=== PATIENT | female | born 1990 | race African-American/Black ===

== ENCOUNTER 2016-03-12 11:40 | Emergency (ER) | payer MEDICAID ==
[~2016-03-12] VITALS: Ht 149.9 cm; Wt 75.0 kg
[~2016-03-12 11:40] MED LIST: PARAIUD
[2016-03-12 11:42] VITALS: BP 127/79; PULSE 100; RESP 16; TEMP 97.9; O2SAT 98
[2016-03-12] MEDS ORDERED: CLIN1CAP6 PO (12:21)
--- NOTE | 2016-03-12 12:22 | PD ---
HPI Chief Complaint: Abnormal Results Time Seen by Provider: 12:06 Travel History International Travel<30 days: No Contact w/Intl Traveler<30days: No Traveled to known affect area: No History of Present Illness HPI 25-year-old female came to the emergency room with history of discharge from her right nipple with pain. Patient has a 3-month-old baby and she is breast- feeding. Since yesterday she noticed her right nipple being tender and when she expressed she noticed some purulent discharge coming from the side of her nipple where she had nipple piercing done many years ago. As per her the discharge smells foul. Today her left apple seems to be hurting as well. No history of fever or chills. Vital signs otherwise stable. PFSH Past Medical History Narrative Medical List of her past medical history as reviewed from the nursing note. Medical History: Denies Significant Hx Diminished Hearing: No Tetanus Vaccination: < 5 Years Influenza Vaccination: Yes ?: Not LMP: 02/16/16 : 2 Para: 2 Miscarriage: 0 : 0 Past Surgical History Surgical History: No Previous Surgery Social History Alcohol Use: No Tobacco Use: No Substance Use: No Allergies-Medications (Allergen,Severity, Reaction): Coded Allergies: No Known Allergies (Unverified , 03/12/16) Comments No known drug allergies. Reported Meds & Prescriptions Reported Meds & Active Scripts Active Clindamycin (Clindamycin HCl) 300 Mg Cap 300 Mg PO Q6H 10 Days Narrative Medication List of her home medications reviewed from the nursing note. Review of Systems Except as stated in HPI: all other systems reviewed are Neg Physical Exam Narrative GENERAL: Awake, alert, no obvious distress SKIN: Warm and dry. Right breast nipple area upon expressing has milk coming out from the nipple. However there were 2 tiny drops of pus from 4:00 AM and 11 o'clock position at the base of the nipple. It was somewhat tender to touch. No erythema or lumps felt. HEAD: Atraumatic. Normocephalic. EYES: Pupils equal and round. No scleral icterus. No injection or drainage. ENT: No nasal bleeding or discharge. Mucous membranes pink and moist. NECK: Trachea midline. No JVD. CARDIOVASCULAR: Regular rate and rhythm. No murmur appreciated. RESPIRATORY: No accessory muscle use. Clear to auscultation. Breath sounds equal bilaterally. GASTROINTESTINAL: Abdomen soft, non-tender, nondistended. Hepatic and splenic margins not palpable. MUSCULOSKELETAL: No obvious deformities. No clubbing. No cyanosis. No edema. NEUROLOGICAL: Awake and alert. No obvious cranial nerve deficits. Motor grossly within normal limits. Normal speech. PSYCHIATRIC: Appropriate mood and affect; insight and judgment normal. Data Data Last Documented VS Vital Signs Date Time Temp Pulse Resp B/P Pulse Ox O2 Delivery O2 Flow Rate FiO2 03/12/16 11:50 16 Room Air 03/12/16 11:42 97.9 100 127/79 98 Orders Wound Culture And Gram Stain (03/12/16 12:11) Clindamycin (Cleocin) (03/12/16 12:30) MDM Medical Decision Making Medical Screen Exam Complete: Yes Emergency Medical Condition: Yes Medical Record Reviewed: Yes Differential Diagnosis Mastitis Narrative Course 12:26 PM patient is given a dose of clindamycin and the culture of the pus was collected and sent. Patient will be discharged home on antibiotic prescription and instructions. Procedures EKG Prior to Arrival: No Diagnosis Primary Impression: Mastitis Referrals: Primary Care Physician 2 days Additional Instructions: Please return to the ER if the condition worsens or any other new concerns. Take the antibiotic prescription as per the direction. Apply warm moist heat to the area. This will allow the antibiotic to absorb water into the tissues due to increased circulation. Clindamycin is safe for breast-feeding. However till the time you have pain and there is pus coming out just pump the milk and dump it. Med/Other Pt SpecificInfo: Prescription(s) given Scripts Clindamycin 300 Mg [id number] Mg PO Q6H 10 Days Ref 0 Prov:Mark Strong MD 03/12/16 Disposition: 01 DISCHARGE HOME Condition: Stable Mark Strong MD Mar 12, 2016 12:22
[2016-03-12] MEDS ORDERED: CLINDAMYCIN 150 MG CAP PO ONE (12:30)
[2016-03-21] MEDS ORDERED: FLUC150T PO (16:23)
== END 2016-03-12 12:59 | disposition home or self-care (01) ==
LOC: NEPA 11:40
DX: N61.0 Mastitis without abscess (principal); N64.52 Nipple discharge; N64.4 Mastodynia
CPT/HCPCS: 86403; 87070; 99283

== ENCOUNTER 2016-04-20 21:10 | Emergency (ER) | payer MEDICAID ==
[~2016-04-20] VITALS: Ht 149.9 cm; Wt 78.0 kg
[~2016-04-20 21:10] MED LIST changes: +CLIN1CAP6 PO; +FLUC150T PO; -PARAIUD
[2016-04-20 21:23] VITALS: BP 119/73; PULSE 84; RESP 14; TEMP 98; O2SAT 99
[2016-04-20] MEDS ORDERED: SODIUM CHLOR 0.9% 1000 ML INJ 1,000 ML IV SCH (22:34)
[2016-04-20] MEDS ORDERED: ONDANSETRON HCL 4 MG/2 ML VIAL IVP ONE (22:45)
[2016-04-20] MEDS ORDERED: MORPHINE SULFATE 4 MG/ML INJ IV PUSH ONE (22:45)
[2016-04-20] MEDS ORDERED: SODIUM CHLORIDE 0.9% FLUSH 5 ML FLUSH IVF PRN (22:45)
[2016-04-20 23:17] LABS: BLOOD, URINE NEG (NEG); COMMENT (UR) CULT NOT INDICATED; CULTURE IF INDICATED CULT NOT INDICATED; GLUCOSE,URINE NEG (NEG); KETONE, URINE NEG (NEG); MUCUS URINE MANY /lpf (OCC); NITRITE,URINE NEG (NEG); PH, URINE 6.5 (5.0-8.5); SQUAMOUS EPITHELIAL CELL URINE 13 /hpf (0-5); URINE COLOR YELLOW (YELLW/STRAW)
[2016-04-20 23:18] VITALS: RESP 20
[2016-04-20 23:40] LABS: ALKALINE PHOSPHATASE 89 U/L (45-117); TOTAL BILIRUBIN ADULT 0.2 MG/DL (0.2-1.0)
--- NOTE | 2016-04-21 00:23 | PD ---
HPI Chief Complaint: Abdominal Pain Time Seen by Provider: 22:33 Travel History International Travel<30 days: No Contact w/Intl Traveler<30days: No Traveled to known affect area: No History of Present Illness HPI To 25-year-old woman who presents to the emergency department complaining of lower abdominal pain and back pain ongoing for the past day or so, getting steadily worse. No clear aggravating or alleviating factors. No urinary symptoms. No vaginal discharge or vaginal bleeding. Last initial period was August 17. She has delivered a baby about 4 months ago. She had a copper IUD placed in January. She otherwise has been feeling generally well and healthy. No history of any abdominal surgeries. History Past Medical History Medical History: Denies Significant Hx LMP: 03/19/16 : 2 Para: 2 Past Surgical History Surgical History: No Previous Surgery Social History Alcohol Use: No Tobacco Use: No Allergies-Medications (Allergen,Severity, Reaction): Coded Allergies: No Known Allergies (Unverified , 04/20/16) Reported Meds & Prescriptions Reported Meds & Active Scripts Active Macrobid (Nitrofurantoin Monoh/Nitrofur Macro) 100 Mg Cap 100 Mg PO BID Anaprox DS (Naproxen Sodium) 550 Mg Tab 550 Mg PO Q12HR PRN Lortab (Hydrocodone-Acetaminophen) 5-325 Mg Tab 1 Tab PO Q6H PRN Review of Systems Except as stated in HPI: all other systems reviewed are Neg Physical Exam Narrative GENERAL: Well-appearing 24 year-old woman, no acute distress. SKIN: Warm and dry. HEAD: Atraumatic. Normocephalic. NECK: Trachea midline. No JVD. CARDIOVASCULAR: Regular rate and rhythm. No murmur appreciated. RESPIRATORY: No accessory muscle use. Clear to auscultation. Breath sounds equal bilaterally. GASTROINTESTINAL: Abdomen is flat and soft. She has moderate tenderness in the lower abdomen with a lot of voluntary guarding. Skin the midline. There is not really right lower quadrant tenderness or guarding. PELVIC: Normal external female genitalia. Cervix points posteriorly was a little bit difficult to see however ParaGard strings were observed. No significant discharge. No cervical motion tenderness. No adnexal tenderness or masses. kier tender with guarding over the lower midline suprapubic abdomen. MUSCULOSKELETAL: No obvious deformities. No edema. NEUROLOGICAL: Awake and alert. No obvious cranial nerve deficits. Motor grossly within normal limits. Normal speech. Data Data Last Documented VS Orders Complete Blood Count With Diff (04/20/16 22:34) Comprehensive Metabolic Panel (04/20/16 22:34) Lipase (04/20/16 22:34) Urinalysis - C+S If Indicated (04/20/16 22:34) Iv Access Insert/Monitor (04/20/16 22:34) Ecg Monitoring (04/20/16 22:34) Oximetry (04/20/16 22:34) NPO (04/20/16 22:34) Morphine Inj (Morphine Inj) (04/20/16 22:45) Ondansetron Inj (Zofran Inj) (04/20/16 22:45) Sodium Chlor 0.9% 1000 Ml Inj (Ns 1000 M (04/20/16 22:34) Sodium Chloride 0.9% Flush (Ns Flush) (04/20/16 22:45) Ed Urine Pregnancytest Poc (04/20/16 22:34) Gc And Chlamydia Pcr (04/20/16 22:34) Wet Prep Profile (04/20/16 22:34) Ct Abd/Pel W Iv Contrast(Rout) (04/21/16 22:34) Iohexol 350 Inj (Omnipaque 350 Inj) (04/21/16 01:48) Ketorolac Inj (Toradol Inj) (04/21/16 02:45) Urine Culture (04/21/16 02:41) Labs MDM Medical Decision Making Medical Screen Exam Complete: Yes Emergency Medical Condition: Yes Differential Diagnosis Ruptured ovarian cyst, PID, , cystitis, appendicitis, other Narrative Course Medical decision making INITIAL: Is a well 25-year-old woman presents to the emergency department with lower abdominal pain that radiates through to her back. Etiology is unclear. She is a lot of voluntary guarding and some tenderness. She looks otherwise well. She is not really at risk for PID. Pelvic exam was unremarkable other than suprapubic tenderness. Some concern for appendicitis. No other clear etiology. We'll check labs, UA, CT, reassess. Scripts Nitrofurantoin Monohydrate Macrocrystals (Macrobid)100 Mg [id number] Mg PO BID #6 CAP Ref 0 Prov:Libby Vivas MD 04/21/16 Naproxen Sodium DS (Anaprox DS)550 Mg [id number] Mg PO Q12HR PRN (PAIN GREATER THAN 6) #12 TAB Ref 0 Prov:Libby Vivas MD 04/21/16 Hydrocodone-Acetaminophen (Lortab)5-325 Mg Tab1 Tab PO Q6H PRN (PAIN) #7 TAB Ref 0 Prov:Libby Vivas MD 04/21/16 Navdeep Corbett MD Apr 21, 2016 00:23 Urine Bilirubin NEG Urine Urobilinogen 2.0 MG/DL Urine Leukocyte Esterase SMALL Urine RBC 1 /hpf Urine WBC 6 /hpf Urine Squamous Epithelial 13 /hpf Cells Urine Mucus MANY /lpf Microscopic Urinalysis Comment CULT NOT INDICATED Total Bilirubin 0.2 MG/DL Alkaline Phosphatase 89 U/L Total Protein 8.2 GM/DL [facility] Medical Decision Making Medical Screen Exam Complete: Yes Emergency Medical Condition: Yes Differential Diagnosis Ruptured ovarian cyst, PID, , cystitis, appendicitis, other Narrative Course Medical decision making INITIAL: Is a well 25-year-old woman presents to the emergency department with lower abdominal pain that radiates through to her back. Etiology is unclear. She is a lot of voluntary guarding and some tenderness. She looks otherwise well. She is not really at risk for PID. Pelvic exam was unremarkable other than suprapubic tenderness. Some concern for appendicitis. No other clear etiology. We'll check labs, UA, CT, reassess. Scripts No Active Prescriptions or Reported Meds Navdeep Corbett MD Apr 21, 2016 00:23
[2016-04-21 00:54] LABS: AUTOMATED NEUTROPHIL # 3.6 TH/MM3 (1.8-7.7); BASOPHIL % 0.4 % (0.0-2.0); EOSINOPHIL # 0.1 TH/MM3 (0-0.4); EOSINOPHIL % 1.2 % (0.0-4.0); HEMATOCRIT 37.1 % (35.0-46.0); LYMPH % 35.2 % (9.0-44.0); LYMPHOCYTE # 2.3 TH/MM3 (1.0-4.8); MEAN CORPUSCULAR HGB CONC 32.4 % (32.0-36.0); MONO % 7.5 % (0.0-8.0); NEUT % 55.7 % (16.0-70.0); PLATELET COUNT 311 TH/MM3 (150-450); RED BLOOD COUNT 5.02 MIL/MM3 (4.00-5.30); RED CELL DISTRIBUTION WIDTH 15.8 % (11.6-17.2); WHITE BLOOD COUNT 6.6 TH/MM3 (4.0-11.0)
[2016-04-21 01:00] VITALS: BP 112/68; PULSE 80; RESP 14; TEMP 98; O2SAT 99
[2016-04-21 01:10] LABS: HEMO FLAGS AUTO DIFF
[2016-04-21 01:12] LABS: ANION GAP 10 MEQ/L (5-15); AST (GOT) 77 U/L (15-37); BICARBONATE 25.9 MEQ/L (21.0-32.0); BLOOD UREA NITROGEN 13 MG/DL (7-18); CHLORIDE 103 MEQ/L (98-107); GLOMERULAR FILTRATION RATE 114 ML/MIN (>89); SODIUM (NA) 139 MEQ/L (136-145)
--- NOTE | 2016-04-21 01:12 | PD ---
Physical Exam Date Seen by Provider: Apr 21, 2016 Time Seen by Provider: 01:09 Narrative Accepted in transfer of care from Dr. Corbett Data Data Last Documented VS Vital Signs Date Time Temp Pulse Resp B/P Pulse Ox O2 Delivery O2 Flow Rate FiO2 04/21/16 01:00 98.0 80 14 112/68 99 Room Air Orders Complete Blood Count With Diff (04/20/16 22:34) Comprehensive Metabolic Panel (04/20/16 22:34) Lipase (04/20/16 22:34) Urinalysis - C+S If Indicated (04/20/16 22:34) Iv Access Insert/Monitor (04/20/16 22:34) Ecg Monitoring (04/20/16 22:34) Oximetry (04/20/16 22:34) NPO (04/20/16 22:34) Morphine Inj (Morphine Inj) (04/20/16 22:45) Ondansetron Inj (Zofran Inj) (04/20/16 22:45) Sodium Chlor 0.9% 1000 Ml Inj (Ns 1000 M (04/20/16 22:34) Sodium Chloride 0.9% Flush (Ns Flush) (04/20/16 22:45) Ed Urine Pregnancytest Poc (04/20/16 22:34) Gc And Chlamydia Pcr (04/20/16 22:34) Wet Prep Profile (04/20/16 22:34) Ct Abd/Pel W Iv Contrast(Rout) (04/21/16 22:34) Iohexol 350 Inj (Omnipaque 350 Inj) (04/21/16 01:48) Ketorolac Inj (Toradol Inj) (04/21/16 02:45) Urine Culture (04/21/16 02:41) Labs Laboratory Tests Test 04/20/16 04/20/16 04/21/16 22:40 22:55 00:15 Urine Color YELLOW Urine Turbidity HAZY Urine pH 6.5 Urine Specific [place] 1.034 Urine Protein 30 mg/dL Urine Glucose (UA) NEG mg/dL Urine Ketones NEG mg/dL Urine Occult Blood NEG Urine Nitrite NEG Urine Bilirubin NEG Urine Urobilinogen 2.0 MG/DL Urine Leukocyte Esterase SMALL Urine RBC 1 /hpf Urine WBC 6 /hpf Urine Squamous Epithelial 13 /hpf Cells Urine Mucus MANY /lpf Microscopic Urinalysis Comment CULT NOT INDICATED Sodium Level 139 MEQ/L Potassium Level 4.0 MEQ/L Chloride Level 103 MEQ/L Carbon Dioxide Level 25.9 MEQ/L Anion Gap 10 MEQ/L Blood Urea Nitrogen 13 MG/DL Creatinine 0.76 MG/DL Estimat Glomerular Filtration 114 ML/MIN Rate Random Glucose 77 MG/DL Calcium Level 9.2 MG/DL Total Bilirubin 0.2 MG/DL Aspartate Amino Transf 77 U/L (AST/SGOT) Alanine Aminotransferase 91 U/L (ALT/SGPT) Alkaline Phosphatase 89 U/L Total Protein 8.2 GM/DL Albumin 4.1 GM/DL Lipase 135 U/L White Blood Count 6.6 TH/MM3 Red Blood Count 5.02 MIL/MM3 Hemoglobin 12.0 GM/DL Hematocrit 37.1 % Mean Corpuscular Volume 74.0 FL Mean Corpuscular Hemoglobin 24.0 PG Mean Corpuscular Hemoglobin 32.4 % Concent Red Cell Distribution Width 15.8 % Platelet Count 311 TH/MM3 Mean Platelet Volume 8.3 FL Neutrophils (%) (Auto) 55.7 % Lymphocytes (%) (Auto) 35.2 % Monocytes (%) (Auto) 7.5 % Eosinophils (%) (Auto) 1.2 % Basophils (%) (Auto) 0.4 % Neutrophils # (Auto) 3.6 TH/MM3 Lymphocytes # (Auto) 2.3 TH/MM3 Monocytes # (Auto) 0.5 TH/MM3 Eosinophils # (Auto) 0.1 TH/MM3 Basophils # (Auto) 0.0 TH/MM3 CBC Comment AUTO DIFF Differential Comment AUTO DIFF CONFIRMED Ovalocytes 1+ Clue Cells (Wet Prep) NONE SEEN Vaginal Trichomonas (Wet Prep) NONE SEEN Vaginal Yeast (Wet Prep) NONE SEEN Chlamydia trachomatis DNA NOT DETECTED (PCR) Neisseria gonorrhoeae DNA NOT DETECTED (PCR) [facility] Medical Record Reviewed: Yes Supervised Visit with GIORGIO: No Interpretation(s) Last Impressions Abdomen/Pelvis CT 04/21/16 3310 Signed Impressions: Service Date/Time: Thursday, April 21, 2016 01:40 - CONCLUSION: Normal examination. Rai Paredes MD Differential Diagnosis Please refer Dr. Corbett's dictation Narrative Course Accepted in transfer of care from Dr. Corbett; follow up pending CT and patient disposition Patient feels well states pain is starting to return administered Toradol 30 mg IV; imaging study resulted and reveals no acute abnormality this is information is shared with the patient with her spouse at bedside. Patient is not breast- feeding. Patient discharged with prescription for Lortab 5/325; Anaprox DS; patient is noted to have white blood cells on urinalysis will cover with Macrobid 3 days urine culture ordered; patient is stable for outpatient management. Diagnosis Primary Impression: Pelvic pain Referrals: Primary Care Physician call for appointment Patient Instructions: General Instructions, Narcotic given in the ED Additional Instruction: Increase fluid hydration Take medications as prescribed Follow-up with your primary care provider Take acetaminophen/Tylenol as needed for fever 100.4F or greater Return to the emergency department for any concerns or change in condition Med/Other Pt SpecificInfo: Prescription(s) given Scripts Nitrofurantoin Monohydrate Macrocrystals (Macrobid)100 Mg [id number] Mg PO BID #6 CAP Ref 0 Prov:Libby Vivas MD 04/21/16 Naproxen Sodium DS (Anaprox DS)550 Mg [id number] Mg PO Q12HR PRN (PAIN GREATER THAN 6) #12 TAB Ref 0 Prov:Libby Vivas MD 04/21/16 Hydrocodone-Acetaminophen (Lortab)5-325 Mg Tab1 Tab PO Q6H PRN (PAIN) #7 TAB Ref 0 Prov:Libby Vivas MD 04/21/16 Disposition: 01 DISCHARGE HOME Condition: Stable Libby Vivas MD Apr 21, 2016 01:12
[2016-04-21 01:15] LABS: ALT (GPT) 91 U/L (10-53)
[2016-04-21 01:40] LABS: OVALOCYTES 1+ (NORMAL); SCAN/DIFF AUTO DIFF CONFIRMED
[2016-04-21] MEDS ORDERED: IOHEXOL 350 MG/ML 10 ML VIAL (for RAD DIAG) IV ONE (01:48)
--- NOTE | 2016-04-21 01:57 | RADRPT ---
EXAM DATE/TIME: 04/21/2016 01:40 [facility] COMPARISON: No previous studies available for comparison. INDICATIONS : Abdominal pain today. IV CONTRAST: 100 cc Omnipaque 350 (iohexol) IV ORAL CONTRAST: No oral contrast ingested. RADIATION DOSE: 9.95 CTDIvol (mGy) MEDICAL HISTORY : Crohn's disease. SURGICAL HISTORY : None. ENCOUNTER: Initial ACUITY: 1 day PAIN SCALE: 5/10 LOCATION: abdomen TECHNIQUE: Volumetric scanning of the abdomen and pelvis was performed. Using automated exposure control and ad justment of the mA and/or kV according to patient size, radiation dose was kept as low as reasonably achievable to obtain optimal diagnostic quality images. FINDINGS: LOWER LUNGS: The visualized lower lungs are clear. LIVER: Homogeneous density without lesion. There is no dilation of the biliary tree. No calcified gallston es. SPLEEN: Normal size without lesion. PANCREAS: Within normal limits. KIDNEYS: Normal in size and shape. There is no mass, stone or hydronephrosis. ADRENAL GLANDS: Within normal limits. VASCULAR: There is no aortic aneurysm. BOWEL/MESENTERY: The stomach, small bowel, and colon demonstrate no acute abnormality. There is no free intraperitone al air or fluid. ABDOMINAL WALL: Within normal limits. RETROPERITONEUM: There is no lymphadenopathy. BLADDER: No wall thickening or mass. REPRODUCTIVE: IUD device seen within the uterus. Trace free fluid in the cul-de-sac. INGUINAL: There is no lymphadenopathy or hernia. MUSCULOSKELETAL: Within normal limits for patient age. CONCLUSION: Normal examination. Rai Paredes MD on April 21, 2016 at 1:55 Board Certified Radiologist. This report was verified electronically.
[2016-04-21] MEDS ORDERED: NAPR550 PO (02:44)
[2016-04-21] MEDS ORDERED: MACR100C2 PO (02:44)
[2016-04-21] MEDS ORDERED: HYDR-3533 PO (02:44)
[2016-04-21] MEDS ORDERED: KETOROLAC TROMETHAMINE 30 MG/ML (IVP) VIAL IV PUSH ONE (02:45)
[2016-04-21 04:43] LABS: CHLAMYDIA PCR NOT DETECTED (NOT DETECT); NEISSERIA PCR NOT DETECTED (NOT DETECT)
== END 2016-04-21 03:23 | disposition home or self-care (01) ==
LOC: NEPA 21:10
DX: R10.2 Pelvic and perineal pain (principal); M54.5 Low back pain
CPT/HCPCS: 74177; 80053; 81001; 83690; 84703; 85025; 87086; 87210; 87491; 87591; 96361; 96374; 96375; 99284; J1885; J2270; J2405; J7030; Q9967

== ENCOUNTER 2016-08-15 13:42 | Emergency (ER) | payer SELFPAY ==
[~2016-08-15 13:42] MED LIST changes: -CLIN1CAP6 PO; -FLUC150T PO; +HYDR-3533 PO; +MACR100C2 PO; +NAPR550 PO
[2016-08-15 13:44] VITALS: BP 114/73; PULSE 97; RESP 13; TEMP 98.8; O2SAT 100
--- NOTE | 2016-08-15 14:03 | PD ---
Physical Exam Date Seen by Provider: Aug 15, 2016 Time Seen by Provider: 14:02 Data Data Last Documented VS Vital Signs Date Time Temp Pulse Resp B/P Pulse Ox O2 Delivery O2 Flow Rate FiO2 08/15/16 13:44 98.8 97 13 114/73 100 MDM Supervised Visit with GIORGIO: No Narrative Course 26 YO F with complaint of 9/10 RUQ abdominal pain x 3 days. States "every time I eat I get diarrhea" since 3 am. Vitals reviewed. Seen in triage, awaiting bed placement. Krystyna Paulino Aug 15, 2016 14:03
== END 2016-08-15 17:56 | disposition left against medical advice (07) ==
LOC: NED 13:42
DX: R10.11 Right upper quadrant pain (principal); R19.7 Diarrhea, unspecified; Z53.21 Procedure and treatment not carried out due to patient leaving prior to being seen by health care provider
CPT/HCPCS: 99281

== ENCOUNTER 2016-10-13 09:24 | Emergency (ER) | payer MEDICAID ==
[~2016-10-13] VITALS: Ht 149.9 cm; Wt 85.0 kg
[2016-10-13 09:26] VITALS: BP 128/76; PULSE 98; RESP 16; TEMP 98.2; O2SAT 99
--- NOTE | 2016-10-13 09:39 | PD ---
HPI . vaginal bleeding, UTI and yeast infection Chief Complaint: Cyber Security Problem/Complaint Time Seen by Provider: 09:32 Travel History International Travel<30 days: No Contact w/Intl Traveler<30days: No Traveled to known affect area: No History of Present Illness HPI 26-year-old female who recently had a baby 10 months prior here with complaints of vaginal bleeding for the past 3 months, recurrent urinary tract infection and yeast infection. Patient tells me that she follows with the [facility] and was told that there was nothing much going on. She was placed on control for her vaginal bleeding and tells me that she continues to bleed despite taking the medications. She also tells me that she has recurrent urinary tract infections and yeast infections. She saw her provider there 3 weeks ago and was told just continue with her control. She is here because she is still bleeding from her vagina. She also reports increased urinary frequency and burning. She denies any high risk sexual behaviors. PFSH Past Medical History Diminished Hearing: No ?: Not LMP: CURRENT : 2 Para: 2 Miscarriage: 0 : 0 Social History Alcohol Use: No Tobacco Use: No Substance Use: No Allergies-Medications (Allergen,Severity, Reaction): Coded Allergies: No Known Allergies (Unverified , 10/13/16) Reported Meds & Prescriptions Reported Meds & Active Scripts Active Reported Paragard Intrauterine Fountain Helper (Copper (Iud)) 1 Iud Iud Unknown Dose VAGINAL Review of Systems General / Constitutional: No: Fever Eyes: No: Visual changes HENT: No: Headaches Cardiovascular: No: Chest Pain or Discomfort Respiratory: No: Shortness of Breath Gastrointestinal: No: Abdominal Pain Genitourinary: Positive: Urgency, Frequency, Discharge, Menorrhagia, No: Dysuria Musculoskeletal: No: Pain Skin: No Rash Neurologic: No: Weakness Psychiatric: No: Depression Endocrine: No: Polydipsia Hematologic/Lymphatic: No: Easy Bruising Physical Exam Narrative GENERAL: AAO x 3, no acute distress, Well-nourished, well-developed patient. SKIN: Warm and dry. No visible rashes or bruising. HEAD: Normocephalic and atraumatic. EYES: No scleral icterus. No injection or drainage. EOM intact, PERRLA ENT: No nasal drainage noted. Mucous membranes pink. Airway patent. NECK: Supple, trachea midline. No JVD. CARDIOVASCULAR: Regular rate and rhythm without murmurs, gallops, or rubs. RESPIRATORY: Breath sounds equal bilaterally. No accessory muscle use. No rhonchi or rales. GASTROINTESTINAL: Abdomen soft, non-tender, nondistended. No rebound or guarding PELVIC: Marylin RN present: mild bleeding dark brown from cervical os, clear discharge, no cervical motion tenderness EXTREMITIES: No cyanosis or edema. BACK: No obvious deformity. No CVA tenderness. NEURO: CN II-12 intact, steam press operator strength normal b/l, UE and LE 5/5, no focal deficits PSYCH: AAO x 3, normal affect. Data Data Last Documented VS Vital Signs Date Time Temp Pulse Resp B/P Pulse Ox O2 Delivery O2 Flow Rate FiO2 10/13/16 09:34 16 10/13/16 09:26 98.2 98 128/76 99 Orders Complete Blood Count With Diff (10/13/16 09:39) Basic Metabolic Panel (Bmp) (10/13/16 09:39) Gc And Chlamydia Pcr (10/13/16 09:39) Wet Prep Profile (10/13/16 09:39) Urinalysis - C+S If Indicated (10/13/16 09:39) Ed Urine Pregnancytest Poc (10/13/16 09:39) Labs Laboratory Tests Test 10/13/16 10:00 White Blood Count 4.7 TH/MM3 Red Blood Count 4.63 MIL/MM3 Hemoglobin 10.6 GM/DL Hematocrit 33.2 % Mean Corpuscular Volume 71.7 FL Mean Corpuscular Hemoglobin 23.0 PG Mean Corpuscular Hemoglobin 32.0 % Concent Red Cell Distribution Width 18.6 % Platelet Count 292 TH/MM3 Mean Platelet Volume 7.8 FL Neutrophils (%) (Auto) 45.4 % Lymphocytes (%) (Auto) 43.8 % Monocytes (%) (Auto) 7.8 % Eosinophils (%) (Auto) 2.0 % Basophils (%) (Auto) 1.0 % Neutrophils # (Auto) 2.2 TH/MM3 Lymphocytes # (Auto) 2.1 TH/MM3 Monocytes # (Auto) 0.4 TH/MM3 Eosinophils # (Auto) 0.1 TH/MM3 Basophils # (Auto) 0.0 TH/MM3 CBC Comment DIFF FINAL Differential Comment Urine Color YELLOW Urine Turbidity CLEAR Urine pH 7.5 Urine Specific [place] 1.027 Urine Protein TRACE mg/dL Urine Glucose (UA) NEG mg/dL Urine Ketones NEG mg/dL Urine Occult Blood NEG Urine Nitrite NEG Urine Bilirubin NEG Urine Urobilinogen LESS THAN 2.0 MG/DL Urine Leukocyte Esterase NEG Urine RBC LESS THAN 1 /hpf Urine WBC LESS THAN 1 /hpf Urine Squamous Epithelial 2 /hpf Cells Urine Mucus FEW /lpf Microscopic Urinalysis Comment CULT NOT INDICATED Clue Cells (Wet Prep) NONE SEEN Vaginal Trichomonas (Wet Prep) NONE SEEN Vaginal Yeast (Wet Prep) NONE SEEN Sodium Level 139 MEQ/L Potassium Level 3.8 MEQ/L Chloride Level 105 MEQ/L Carbon Dioxide Level 27.7 MEQ/L Anion Gap 6 MEQ/L Blood Urea Nitrogen 8 MG/DL Creatinine 0.68 MG/DL Estimat Glomerular Filtration 129 ML/MIN Rate Random Glucose 79 MG/DL Calcium Level 8.6 MG/DL [facility] Medical Decision Making Medical Screen Exam Complete: Yes Emergency Medical Condition: Yes Medical Record Reviewed: Yes Differential Diagnosis Menorrhagia, DUB, recurrent urinary tract infection, vaginitis, Narrative Course 26-year-old female here with recurrent vaginal bleeding, dysuria, urinary tract infection [place] infection. On examination there are no overt gross abnormalities. She does have slight bleeding at the cervical os and clear discharge present. Labs, wet prep, GC PCR have been ordered along with urinalysis. Wet prep negative. H/H stable. GC pending. UA negative. Laboratory Tests Test 10/13/16 10:00 White Blood Count 4.7 TH/MM3 Red Blood Count 4.63 MIL/MM3 Hemoglobin 10.6 GM/DL Hematocrit 33.2 % Mean Corpuscular Volume 71.7 FL Mean Corpuscular Hemoglobin 23.0 PG Mean Corpuscular Hemoglobin 32.0 % Concent Red Cell Distribution Width 18.6 % Platelet Count 292 TH/MM3 Mean Platelet Volume 7.8 FL Neutrophils (%) (Auto) 45.4 % Lymphocytes (%) (Auto) 43.8 % Monocytes (%) (Auto) 7.8 % Eosinophils (%) (Auto) 2.0 % Basophils (%) (Auto) 1.0 % Neutrophils # (Auto) 2.2 TH/MM3 Lymphocytes # (Auto) 2.1 TH/MM3 Monocytes # (Auto) 0.4 TH/MM3 Eosinophils # (Auto) 0.1 TH/MM3 Basophils # (Auto) 0.0 TH/MM3 CBC Comment DIFF FINAL Differential Comment Urine Color YELLOW Urine Turbidity CLEAR Urine pH 7.5 Urine Specific [place] 1.027 Urine Protein TRACE mg/dL Urine Glucose (UA) NEG mg/dL Urine Ketones NEG mg/dL Urine Occult Blood NEG Urine Nitrite NEG Urine Bilirubin NEG Urine Urobilinogen LESS THAN 2.0 MG/DL Urine Leukocyte Esterase NEG Urine RBC LESS THAN 1 /hpf Urine WBC LESS THAN 1 /hpf Urine Squamous Epithelial 2 /hpf Cells Urine Mucus FEW /lpf Microscopic Urinalysis Comment CULT NOT INDICATED Clue Cells (Wet Prep) NONE SEEN Vaginal Trichomonas (Wet Prep) NONE SEEN Vaginal Yeast (Wet Prep) NONE SEEN Sodium Level 139 MEQ/L Potassium Level 3.8 MEQ/L Chloride Level 105 MEQ/L Carbon Dioxide Level 27.7 MEQ/L Anion Gap 6 MEQ/L Blood Urea Nitrogen 8 MG/DL Creatinine 0.68 MG/DL Estimat Glomerular Filtration 129 ML/MIN Rate Random Glucose 79 MG/DL Calcium Level 8.6 MG/DL Discussed prophylactic treatment for g/c. Patient declines. She would like to be contacted if positive. Discussed results with the patient. She will need to f/u with display director for further testing to include TSH. Discussed low grade anemia and recommend outpt f/u. Patient verbalized understanding of instructions, questions were answered, and thanked me for their care. I advised them if their condition worsens, please return to the nearest emergency room for further care. Diagnosis Primary Impression: Vaginal bleeding Referrals: Teodora Mack Patient Instructions: General Instructions Additional Instructions: Please follow up with your display director for further workup and treatment. Med/Other Pt SpecificInfo: No Change to Meds Disposition: 01 DISCHARGE HOME Condition: Stable Claudine Dale Oct 13, 2016 09:39
[2016-10-13] MEDS ORDERED: PARAIUD VAGINAL (09:48)
[2016-10-13 10:16] LABS: AUTOMATED NEUTROPHIL # 2.2 TH/MM3 (1.8-7.7); EOSINOPHIL # 0.1 TH/MM3 (0-0.4); HEMATOCRIT 33.2 % (35.0-46.0); HEMO FLAGS DIFF FINAL; LYMPH % 43.8 % (9.0-44.0); LYMPHOCYTE # 2.1 TH/MM3 (1.0-4.8); MEAN CELL VOLUME 71.7 FL (80.0-100.0); MONO % 7.8 % (0.0-8.0); NEUT % 45.4 % (16.0-70.0); PLATELET COUNT 292 TH/MM3 (150-450); RED BLOOD COUNT 4.63 MIL/MM3 (4.00-5.30); RED CELL DISTRIBUTION WIDTH 18.6 % (11.6-17.2); WHITE BLOOD COUNT 4.7 TH/MM3 (4.0-11.0)
[2016-10-13 10:21] LABS: BLOOD, URINE NEG (NEG); COMMENT (UR) CULT NOT INDICATED; CULTURE IF INDICATED CULT NOT INDICATED; GLUCOSE,URINE NEG (NEG); KETONE, URINE NEG (NEG); MUCUS URINE FEW /lpf (OCC); NITRITE,URINE NEG (NEG); PH, URINE 7.5 (5.0-8.5); SQUAMOUS EPITHELIAL CELL URINE 2 /hpf (0-5); URINE COLOR YELLOW (YELLW/STRAW)
[2016-10-13 10:38] LABS: BICARBONATE 27.7 MEQ/L (21.0-32.0); POTASSIUM 3.8 MEQ/L (3.5-5.1)
[2016-10-13 15:02] LABS: CHLAMYDIA PCR NOT DETECTED (NOT DETECT); NEISSERIA PCR NOT DETECTED (NOT DETECT)
[2016-10-22] MEDS ORDERED: METR500T10 PO (16:27)
== END 2016-10-13 10:50 | disposition home or self-care (01) ==
LOC: NEPD 09:24
DX: N93.9 Abnormal uterine and vaginal bleeding, unspecified (principal)
CPT/HCPCS: 80048; 81001; 84703; 85025; 87210; 87491; 87591; 99284

== ENCOUNTER 2017-02-22 18:07 | Emergency (ER) | payer MEDICAID ==
[~2017-02-22] VITALS: Ht 149.9 cm; Wt 80.5 kg
[~2017-02-22 18:07] MED LIST changes: +FLUC150T PO; -HYDR-3533 PO; -MACR100C2 PO; +METR1TAB76 PO; -NAPR550 PO; +PARAIUD VAGINAL
[2017-02-22 18:08] VITALS: BP 134/65; PULSE 85; RESP 18; TEMP 98.7; O2SAT 99
[2017-02-22 19:30] LABS: BILIRUBIN, URINE NEG (NEG); BLOOD, URINE SMALL (NEG); GLUCOSE,URINE NEG (NEG); KETONE, URINE NEG (NEG); MUCUS URINE FEW /lpf (OCC); NITRITE,URINE NEG (NEG); PH, URINE 6.5 (5.0-8.5); SQUAMOUS EPITHELIAL CELL URINE 4 /hpf (0-5); URINE COLOR YELLOW (YELLW/STRAW); URINE LEUKOCYTE ESTERASE SMALL (NEG)
--- NOTE | 2017-02-22 19:34 | PD ---
HPI Chief Complaint: Abdominal Pain Time Seen by Provider: 19:20 Travel History International Travel<30 days: No Contact w/Intl Traveler<30days: No Traveled to known affect area: No History of Present Illness HPI 26y female presents to the ED complains of UTI symptoms for 2-3 days. Patient states that she has had multiple urinary tract infections this year and these symptoms are similar. Says she has dysuria, lower pelvic discomfort after urinating. Denies urinary frequency or consistency. Denies hematuria, vaginal discharge. Patient states he has a ParaGard in place which she has had for almost one year. Says that she has had multiple vaginal bacterial and candidiasis since placement. States she had one episode of nausea without vomiting but otherwise she has been eating normally. Denies diarrhea. Denies chronic medical issues. States she has monogamous. PFSH Past Medical History Medical History: Denies Significant Hx Diminished Hearing: No Genitourinary: Yes (frequent uti's) ?: Unknown LMP: Thanksgiving : 2 Para: 2 Miscarriage: 0 : 0 Past Surgical History Surgical History: No Previous Surgery Social History Alcohol Use: No Tobacco Use: No Substance Use: No Allergies-Medications (Allergen,Severity, Reaction): Coded Allergies: No Known Allergies (Unverified Adverse Reaction, Unknown, 02/22/17) Reported Meds & Prescriptions Reported Meds & Active Scripts Active Diflucan (Fluconazole) 150 Mg Tab 150 Mg PO ONCE Metronidazole Vaginal Gel 0.75 % Gel 1 Appl VAGINAL HS 7 Days Avoid sexual intercourse until treatment completed. Review of Systems Except as stated in HPI: all other systems reviewed are Neg Physical Exam Narrative GENERAL: Well-nourished, well-developed patient. SKIN: Focused skin assessment warm/dry. HEAD: Normocephalic. EYES: No scleral icterus. No injection or drainage. NECK: Supple, trachea midline. No JVD or lymphadenopathy. CARDIOVASCULAR: Regular rate and rhythm without murmurs, gallops, or rubs. RESPIRATORY: Breath sounds equal bilaterally. No accessory muscle use. GASTROINTESTINAL: Abdomen soft, non-tender, nondistended. GENITOURINARY: Normal external genitalia without lesions or erythema. Vaginal vault with scant blood and yellow and white discharge Cervical os was closed without drainage. No cervical motion tenderness. Uterus nontender and nonenlarged. Bilateral adnexa nontender without masses. MUSCULOSKELETAL: No cyanosis, or edema. BACK: Nontender without obvious deformity. No CVA tenderness. Data Data Last Documented VS Vital Signs Date Time Temp Pulse Resp B/P (MAP) Pulse Ox O2 Delivery O2 Flow Rate FiO2 02/22/17 21:04 02/22/17 20:02 82 18 100 Room Air 02/22/17 18:08 98.7 Orders Orders Urinalysis - C+S If Indicated (02/22/17 18:18) Ed Urine Pregnancytest Poc (02/22/17 18:18) Gc And Chlamydia Pcr (02/22/17 20:16) Wet Prep Profile (02/22/17 20:16) Ed Discharge Order (02/22/17 21:04) Labs Laboratory Tests Test 02/22/17 18:24 02/22/17 20:48 Urine Color YELLOW Urine Turbidity HAZY Urine pH 6.5 Urine Specific [place] 1.031 Urine Protein TRACE mg/dL Urine Glucose (UA) NEG mg/dL Urine Ketones NEG mg/dL Urine Occult Blood SMALL Urine Nitrite NEG Urine Bilirubin NEG Urine Urobilinogen 2.0 MG/DL Urine Leukocyte Esterase SMALL Urine RBC 9 /hpf Urine WBC 1 /hpf Urine Squamous Epithelial Cells 4 /hpf Urine Mucus FEW /lpf Microscopic Urinalysis Comment CULT NOT INDICATED Clue Cells (Wet Prep) NONE SEEN Vaginal Trichomonas (Wet Prep) NONE SEEN Vaginal Yeast (Wet Prep) NONE SEEN Chlamydia trachomatis DNA (PCR) NOT DETECTED Neisseria gonorrhoeae DNA (PCR) NOT DETECTED MDM Medical Decision Making Medical Screen Exam Complete: Yes Emergency Medical Condition: Yes Differential Diagnosis Urinary tract infection, chlamydia, gonorrhea, bacterial vaginosis, vaginal candidiasis Narrative Course 26y female presents to the ED complains of UTI symptoms for 2-3 days. Patient states that she has had multiple urinary tract infections this year and these symptoms are similar. Says she has dysuria, lower pelvic discomfort after urinating. Denies urinary frequency or consistency. Denies hematuria, vaginal discharge. Patient states he has a ParaGard in place which she has had for almost one year. Says that she has had multiple vaginal bacterial and candidiasis since placement. States she had one episode of nausea without vomiting but otherwise she has been eating normally. Denies diarrhea. Denies chronic medical issues. States she has monogamous. Vital signs stable Physical exam findings consistent with bacterial vaginitis of the lab states that clue cells were not present. Patient's history and physical consistent with bacterial vaginitis. Patient given metronidazole vaginal with Diflucan for antibiotic-induced vaginal candidiasis. A strong advised she follow-up with her Electro Optics Engineer as her ParaGard may be contributing to her recurrent symptoms of urinary tract infections and bacterial vaginitis. Advised to avoid douching. Avoid insertions while taking metronidazole. Return to the emergency part for worsening or persistent symptoms. Diagnosis Primary Impression: Bacterial vaginitis Referrals: Primary Care Physician Additional Instructions: Follow up with your primary care physician within 2-3 days. If your symptoms persist or worsen, return to the emergency department. Scripts Fluconazole (Diflucan) 150 Mg Tab 150 MG PO ONCE for Infection, #1 TAB 0 Refills Prov: Sofia Caba 02/22/17 Metronidazole Vaginal Gel (Metronidazole Vaginal Gel) 0.75 % Gel 1 APPL VAGINAL HS for Infection for 7 Days, GM 0 Refills Avoid sexual intercourse until treatment completed. Prov: Sofia Caba 02/22/17 Disposition: 01 DISCHARGE HOME Condition: Stable Sofia Caba Feb 22, 2017 19:34
[2017-02-22 20:02] VITALS: BP 107/73; PULSE 82; RESP 18; O2SAT 100
[2017-02-22] MEDS ORDERED: METR0.7512 VAGINAL (21:01)
[2017-02-22] MEDS ORDERED: DIFL150T PO (21:01)
== END 2017-02-22 21:11 | disposition home or self-care (01) ==
LOC: NEPD 18:07
DX: N76.0 Acute vaginitis (principal); B96.89 Other specified bacterial agents as the cause of diseases classified elsewhere; R11.0 Nausea
CPT/HCPCS: 81001; 84703; 87210; 87491; 87591; 99284

== ENCOUNTER 2017-04-10 09:03 | Emergency (ER) | payer MEDICAID ==
[~2017-04-10] VITALS: Ht 149.9 cm; Wt 80.0 kg
[~2017-04-10 09:03] MED LIST changes: +DIFL150T PO; -FLUC150T PO; +METR0.7512 VAGINAL; -METR1TAB76 PO; -PARAIUD VAGINAL
[2017-04-10 09:04] VITALS: BP 136/79; PULSE 91; RESP 12; TEMP 99; O2SAT 99
--- NOTE | 2017-04-10 09:47 | PD ---
HPI Chief Complaint: Cold / Flu Symptoms Time Seen by Provider: 09:40 Travel History International Travel<30 days: No Contact w/Intl Traveler<30days: No Traveled to known affect area: No History of Present Illness HPI This is a 26-year-old female presents for evaluation of sore throat and fever. Symptoms started 2 days ago. It hurts to swallow. Associated maximum temperature 100. Symptoms are moderate, aggravated when swallowing with no alleviating factors. She denies any cough, congestion, rash or recent travel. No sick contacts. No other complaints at this time. PFSH Past Medical History Diminished Hearing: No Genitourinary: Yes (frequent uti's) ?: Not LMP: 03/06/17 : 2 Para: 2 Miscarriage: 0 : 0 Social History Alcohol Use: No Tobacco Use: No Substance Use: No Allergies-Medications (Allergen,Severity, Reaction): Coded Allergies: No Known Allergies (Unverified Adverse Reaction, Unknown, 02/22/17) Reported Meds & Prescriptions Reported Meds & Active Scripts Active No Active Prescriptions or Reported Medications Review of Systems General / Constitutional: Positive: Fever, Chills HENT: Positive: Sore Throat, No: Congestion Cardiovascular: No: Chest Pain or Discomfort Respiratory: No: Cough Gastrointestinal: No: Nausea, Vomiting Physical Exam Narrative GENERAL: Well-developed well-nourished female in no acute distress SKIN: Warm and dry. HEAD: Atraumatic. Normocephalic. EYES: Pupils equal and round. No scleral icterus. No injection or drainage. ENT: No nasal bleeding or discharge. Mucous membranes pink and moist. Oropharyngeal erythema is present without exudate. Uvula midline with no mass effect. NECK: Trachea midline. No JVD. Tender anterior cervical lymphadenopathy is present. Neck is supple full range of motion. CARDIOVASCULAR: Regular rate and rhythm. No murmur appreciated. RESPIRATORY: No accessory muscle use. Clear to auscultation. Breath sounds equal bilaterally. NEUROLOGICAL: Awake and alert. No obvious cranial nerve deficits. Data Data Last Documented VS Vital Signs Date Time Temp Pulse Resp B/P (MAP) Pulse Ox O2 Delivery O2 Flow Rate FiO2 04/10/17 09:04 99.0 91 12 136/79 (98) 99 Orders Orders Group A Rapid Strep Screen (04/10/17 09:32) Influenzae A/B Antigen (04/10/17 09:32) Strep Culture (Group A) (04/10/17 09:35) MDM Medical Decision Making Medical Screen Exam Complete: Yes Emergency Medical Condition: Yes Medical Record Reviewed: Yes Differential Diagnosis Pharyngitis, tonsillitis, peritonsillar abscess, infectious mononucleosis, herpangina, influenza Narrative Course 26-year-old female 2 days of sore throat and low-grade fever. Rapid strep screen and influenza antigen test are negative. She appears to have a viral pharyngitis. She is stable for discharge. Diagnosis Primary Impression: Pharyngitis Additional Instructions: Stay well-hydrated and well-nourished, get plenty of rest. Tylenol or Motrin for pain and fever per dosing instructions on the bottle. Follow-up with primary care physician as needed and return for any emergent medical conditions. Med/Other Pt SpecificInfo: No Change to Meds Scripts No Active Prescriptions or Reported Meds Disposition: 01 DISCHARGE HOME Condition: Stable Gildardo Ramsay Apr 10, 2017 09:47
== END 2017-04-10 10:54 | disposition home or self-care (01) ==
LOC: NEPK 09:03
DX: J02.9 Acute pharyngitis, unspecified (principal)
CPT/HCPCS: 87081; 87804; 87880; 99283

== ENCOUNTER 2017-04-22 08:42 | Emergency (ER) | payer MEDICAID ==
[~2017-04-22] VITALS: Ht 149.9 cm; Wt 79.5 kg
[2017-04-22 08:59] VITALS: BP 130/78; PULSE 102; RESP 18; TEMP 101.7; O2SAT 100
[2017-04-22] MEDS ORDERED: ACETAMINOPHEN 325 MG TAB PO ONE (09:15)
--- NOTE | 2017-04-22 09:22 | PD ---
HPI Chief Complaint: Cold / Flu Symptoms Time Seen by Provider: 09:14 Travel History International Travel<30 days: No Contact w/Intl Traveler<30days: No Traveled to known affect area: No History of Present Illness HPI 26-year-old female presents for evaluation of fevers, chills, myalgias, headache , cough, sore throat. Symptoms started this morning. Pain is worse when swallowing. The pain is unrelieved with ibuprofen. She denies any nausea, vomiting, diarrhea, constipation, dysuria, abdominal pain, rash or recent travel. Denies any sick contacts. She has no other complaints at this time. COUNTS INCLUDE 234 BEDS AT THE [facility] Past Medical History Diminished Hearing: No Genitourinary: Yes (frequent uti's) ?: Not : 2 Para: 2 Miscarriage: 0 : 0 Social History Alcohol Use: No Tobacco Use: No Substance Use: No Allergies-Medications (Allergen,Severity, Reaction): Coded Allergies: No Known Allergies (Unverified Adverse Reaction, Unknown, 04/22/17) Reported Meds & Prescriptions Reported Meds & Active Scripts Active Amoxicillin 875 Mg Tab 875 Mg PO BID 10 Days Review of Systems Except as stated in HPI: all other systems reviewed are Neg Physical Exam Narrative GENERAL: Well-developed well-nourished female in no acute distress SKIN: Warm and dry. HEAD: Atraumatic. Normocephalic. EYES: Pupils equal and round. No scleral icterus. No injection or drainage. ENT: No nasal bleeding or discharge. Mucous membranes pink and moist. There is tonsillar erythema and exudate noted. NECK: Trachea midline. No JVD. Neck supple full range of motion. No lymphadenopathy. CARDIOVASCULAR: Regular rate and rhythm. No murmur appreciated. RESPIRATORY: No accessory muscle use. Clear to auscultation. Breath sounds equal bilaterally. GASTROINTESTINAL: Abdomen soft, non-tender, nondistended. Hepatic and splenic margins not palpable. Data Data Last Documented VS Vital Signs Date Time Temp Pulse Resp B/P (MAP) Pulse Ox O2 Delivery O2 Flow Rate FiO2 04/22/17 08:59 101.7 102 18 130/78 (95) 100 Orders Orders Influenzae A/B Antigen (04/22/17 09:15) Acetaminophen (Tylenol) (04/22/17 09:15) Group A Rapid Strep Screen (04/22/17 09:15) Ed Discharge Order (04/22/17 10:20) [facility] Medical Decision Making Medical Screen Exam Complete: Yes Emergency Medical Condition: Yes Medical Record Reviewed: Yes Differential Diagnosis Pharyngitis, tonsillitis, influenza, peritonsillar abscess Narrative Course Rapid strep screen is positive. The patient will be treated with amoxicillin. Diagnosis Primary Impression: Streptococcal pharyngitis Additional Instructions: Medication as prescribed. Stable hydrated and well-nourished. Tylenol and ibuprofen for fever. Return for any emergent medical conditions. Med/Other Pt SpecificInfo: Prescription(s) given Scripts Amoxicillin (Amoxicillin) 875 Mg Tab 875 MG PO BID for Infection for 10 Days, #20 TAB 0 Refills Prov: Mark Strong MD 04/22/17 Disposition: 01 DISCHARGE HOME Condition: Stable Gildardo Ramsay Apr 22, 2017 09:22
[2017-04-22] MEDS ORDERED: AMOX875T PO (10:20)
== END 2017-04-22 10:35 | disposition home or self-care (01) ==
LOC: NEPK 08:42
DX: J02.0 Streptococcal pharyngitis (principal)
CPT/HCPCS: 87804; 87880; 99283

== ENCOUNTER 2017-08-12 19:00 | Emergency (ER) | payer SELFPAY ==
[~2017-08-12] VITALS: Ht 149.9 cm; Wt 70.0 kg
[~2017-08-12 19:00] MED LIST changes: +AMOX875T PO; -DIFL150T PO; -METR0.7512 VAGINAL
[2017-08-12 19:31] VITALS: BP 128/70; PULSE 99; RESP 16; TEMP 100.4; O2SAT 100
[2017-08-12] MEDS ORDERED: AMOX875T PO (21:38)
--- NOTE | 2017-08-12 21:41 | PD ---
HPI Chief Complaint: ENT Complaint Time Seen by Provider: 21:33 Travel History International Travel<30 days: No Contact w/Intl Traveler<30days: No Traveled to known affect area: No History of Present Illness HPI 27-year-old female presents for evaluation of sore throat. Symptom onset 3 days ago. Pain is sore, constant, aggravated by swallowing, no alleviating factors. Associated with fevers, chills and myalgias. She has been using Motrin with minimal relief. She reports history of frequent streptococcal pharyngitis infections in the past and this feels similar. Denies cough, congestion, rash, recent travel. No sick contacts. No other complaints. PFSH Past Medical History Diminished Hearing: No Genitourinary: Yes (frequent uti's) : 2 Para: 2 Miscarriage: 0 : 0 Social History Alcohol Use: No Tobacco Use: No Substance Use: No Allergies-Medications (Allergen,Severity, Reaction): Coded Allergies: No Known Allergies (Unverified Adverse Reaction, Unknown, 08/12/17) Reported Meds & Prescriptions Reported Meds & Active Scripts Active Amoxicillin 875 Mg Tab 875 Mg PO BID 10 Days Amoxicillin 875 Mg Tab 875 Mg PO BID 10 Days Review of Systems Except as stated in HPI: all other systems reviewed are Neg Physical Exam Narrative GENERAL: Well-developed well-nourished female no acute distress SKIN: Warm and dry. HEAD: Atraumatic. Normocephalic. EYES: Pupils equal and round. No scleral icterus. No injection or drainage. ENT: No nasal bleeding or discharge. Mucous membranes pink and moist. There is oral pharyngeal erythema and exudate formation. Uvula midline with no mass- effect. Voice is not hoarse or muffled. No stridor or drooling. NECK: Trachea midline. No JVD. Tender anterior cervical lymphadenopathy is present. CARDIOVASCULAR: Regular rate and rhythm. No murmur appreciated. RESPIRATORY: No accessory muscle use. Clear to auscultation. Breath sounds equal bilaterally. GASTROINTESTINAL: Abdomen soft, non-tender, nondistended. Hepatic and splenic margins not palpable. Data Data Last Documented VS Vital Signs Date Time Temp Pulse Resp B/P (MAP) Pulse Ox O2 Delivery O2 Flow Rate FiO2 08/12/17 19:31 100.4 99 16 128/70 (89) 100 Orders Orders Ibuprofen (Motrin) (08/12/17 21:45) Amoxicillin (Trimox) (08/12/17 21:45) Ed Discharge Order (08/12/17 21:37) [facility] Medical Decision Making Medical Screen Exam Complete: Yes Emergency Medical Condition: Yes Medical Record Reviewed: Yes Differential Diagnosis Streptococcal pharyngitis, tonsillitis, peritonsillar abscess, infectious mononucleosis, herpangina Narrative Course Examination is consistent with likely streptococcal pharyngitis, will treat with amoxicillin. Diagnosis Primary Impression: Exudative pharyngitis Patient Instructions: General Instructions Departure Forms: Tests/Procedures Additional Instructions: Medication as prescribed. Take Tylenol Motrin for pain and fever per dosing instructions on the bottle. Stay well hydrated and well-nourished. Return for any emergent medical conditions. Med/Other Pt SpecificInfo: Prescription(s) given Scripts Amoxicillin (Amoxicillin) 875 Mg Tab 875 MG PO BID for Infection for 10 Days, #20 TAB 0 Refills Prov: Navdeep Corbett MD 08/12/17 Disposition: 01 DISCHARGE HOME Condition: Stable Gildardo Ramsay Aug 12, 2017 21:41
[2017-08-12] MEDS ORDERED: IBUPROFEN 800 MG TAB PO ONE (21:45)
[2017-08-12] MEDS ORDERED: AMOXICILLIN 875 MG TAB PO ONE (21:45)
== END 2017-08-12 22:40 | disposition home or self-care (01) ==
LOC: NEPK 19:00
DX: J02.9 Acute pharyngitis, unspecified (principal); R50.9 Fever, unspecified; M79.1 Myalgia; Z87.448 Personal history of other diseases of urinary system
CPT/HCPCS: 99283